=== PATIENT | female | born 1995 | race Caucasian/White ===

== ENCOUNTER 2018-05-26 16:29 | Emergency (ER) | payer MEDICAID ==
[2018-05-26] MEDS: IBUPROFEN 600 MG TAB PO (18:05)
== END 2018-05-26 18:54 | disposition home or self-care (01) ==
LOC: FTE 16:29
DX: J06.9 Acute upper respiratory infection, unspecified (principal); R07.9 Chest pain, unspecified
CPT/HCPCS: 71045; 93005; 99284-25

== ENCOUNTER 2018-10-13 20:54 | Emergency (ER) | payer SELFPAY, MEDICAID | END 2018-10-14 00:24 | disposition left against medical advice (07) | LOC: FTE 20:54 | DX: Z53.21 Procedure and treatment not carried out due to patient leaving prior to being seen by health care provider (principal) ==

== ENCOUNTER 2018-10-22 01:26 | Emergency (ER) | payer SELFPAY, OTHER ==
[2018-10-22 05:28] LABS: ADD MAN DIFF? NO
[2018-10-22 05:33] LABS: WHITE BLOOD COUNT 7.4 10^3/ul (4.8-10.8)
[2018-10-22 05:33] LABS: BASOPHIL # 0.1 10^3/ul (0.0-0.1); BASOPHILS % 0.7 % (0.0-2.0); EOSINOPHILS # 0.1 10^3/ul (0.0-0.5); EOSINOPHILS % 1.3 % (0.0-7.0); HEMATOCRIT 39.6 % (37.0-47.0); HEMOGLOBIN 12.8 g/dl (12.0-16.0); LYMPHOCYTES # 2.7 10^3/ul (0.8-2.9); LYMPHOCYTES % 36.4 % (15.0-51.0); MEAN CORPUSCULAR HEMOGLOBIN 27.4 pg (29.0-33.0); MEAN CORPUSCULAR HGB CONC 32.3 g/dl (32.0-37.0); MEAN CORPUSCULAR VOLUME 84.6 fl (82.0-101.0); MEAN PLATELET VOLUME 9.3 fl (7.4-10.4); MONOCYTE # 0.5 10^3/ul (0.3-0.9); MONOCYTES % 7.2 % (0.0-11.0); NEUTROPHILS % 54.1 % (39.0-77.0); PLATELET COUNT 317 10^3/UL (140-415); RED BLOOD COUNT 4.68 10^6/ul (4.20-5.40); RED CELL DISTRIBUTION WIDTH 12.7 % (11.5-14.5)
[2018-10-22] MEDS: KETOROLAC 60 MG INJ IM (05:33)
== END 2018-10-22 06:21 | disposition home or self-care (01) ==
LOC: FTE 01:26
DX: R51 Headache (principal)
CPT/HCPCS: 81025; 85025; 96372; 99284-25